=== PATIENT | male | born 1995 | race Caucasian/White ===

== ENCOUNTER → 2020-07-22 | Outpatient (CLI) | payer OTHER ==
[~2020-07-22] MED LIST: ALBU90I INH; ALBU90OI INH; AMOX500 PO; CEPH500 PO; CODACE30 PO; IBUP800 PO; ONDA4 PO; OTC ALLERGY MEDS PRN; PRED20 PO; [UNRECOGNIZED DRUG - REMARK]
== END | disposition home or self-care (01) ==
LOC: LAB SHORT 15:42 → LAB EV 15:42
DX: R53.81 Other malaise (principal); Z20.828 Contact with and (suspected) exposure to other viral communicable diseases
CPT/HCPCS: U0003

== ENCOUNTER 2021-03-07 15:43 | Emergency (ER) | payer BC, OTHER ==
[~2021-03-07] VITALS: Ht 170.2 cm; Wt 79.4 kg
[2021-03-07] MEDS ORDERED: HYDR1TAB94 PO (19:20)
== END 2021-03-07 19:47 | disposition home or self-care (01) ==
LOC: ER 15:43
DX: S02.609B Fracture of mandible, unspecified, initial encounter for open fracture (principal); F17.200 Nicotine dependence, unspecified, uncomplicated; Y04.2XXA Assault by strike against or bumped into by another person, initial encounter
CPT/HCPCS: 70486; 90471; 90714; 96365; 96375; 99284-25; J0295; J1885